=== PATIENT | female | born 1990 | race Caucasian/White ===

== ENCOUNTER 2016-06-15 12:31 | Emergency (ER) | payer OTHER ==
[~2016-06-15] VITALS: Ht 162.6 cm; Wt 102.7 kg
[2016-06-15 13:28] LABS: HEMATOCRIT 40.9 % (36.0-46.0); MCH 29.3 PG (29.0-34.0); MCHC 32.8 G/DL (30.0-36.0); MCV 89.3 FL (83-99); MEAN PLAT.VOLUME 10.4 uM^3 (9.5-12.4); PLATELET COUNT 282 K/uL (156-360); RBC DIS.WIDTH-CV 13.6 % (11.8-14.6); RBC DIS.WIDTH-SD 44.3 % (39-53); RED BLOOD COUNT 4.58 M/uL (3.80-5.20); WHITE BLOOD COUNT 7.3 K/uL (4.1-10.2)
[2016-06-15 13:37] LABS: CHLORIDE 108 mEq/L (99-109); POTASSIUM 4.2 mEq/L (3.7-5.4); SODIUM 140 mEq/L (136-147)
[2016-06-15 13:39] LABS: GLUCOSE 87 mg/dL (70-99)
[2016-06-15 13:40] LABS: AMPHETAMINE NEGATIVE (500 ng/mL); BARBITURATES NEGATIVE (200 ng/mL); BENZODIAZEPINES NEGATIVE (150 ng/mL); COCAINE NEGATIVE (150 ng/mL); METHADONE NEGATIVE (200 ng/mL); METHAMPHETAMINE NEGATIVE (500 ng/mL); OPIATES (MORPHINE) NEGATIVE (100 ng/mL); OXYCODONE NEGATIVE (100 ng/mL); PHENCYCLIDINE NEGATIVE (25 ng/mL); PROPOXYPHENE NEGATIVE (300 ng/mL); THC CANNABINOIDS NEGATIVE (50 ng/mL); TRICYCLIC ANTIDEPRESSANTS NEGATIVE (300 ng/mL)
[2016-06-15 13:40] LABS: ANION GAP 9 MEQ/L (2-14)
[2016-06-15 13:41] LABS: INTERNAL CONTROLS VALID? YES
[2016-06-15 13:42] LABS: GFR ESTIMATE (CALCULATED) > 59 mL/min/; SERUM ETHYL ALCOHOL < 10 mg/dL
[2016-06-15 13:43] LABS: UREA NITROGEN (BUN) 8 mg/dL (9-23)
[2016-06-15 13:51] LABS: QUANTITATIVE HCG < 4.0 MIU/ML
[2016-06-15] MEDS ORDERED: TRAZODONE HCL50 MG PO (14:00)
[2016-06-15] MEDS ORDERED: ESCITALOPRAM OX10 MG PO (14:01)
[2016-06-15] MEDS ORDERED: ARIPIPRAZOLE15 MG PO (14:02)
[2016-06-15 15:58] VITALS: BP 122/76
== END 2016-06-15 15:55 | disposition home or self-care (01) ==
LOC: EME 12:31
DX: F33.1 Major depressive disorder, recurrent, moderate (principal); F41.1 Generalized anxiety disorder; F17.200 Nicotine dependence, unspecified, uncomplicated; Z88.6 Allergy status to analgesic agent; Z88.8 Allergy status to other drugs, medicaments and biological substances
CPT/HCPCS: 80048; 84702; 85027; 90839; 99281; 99283; G0480